=== PATIENT | female | born 1995 | race Caucasian/White ===

== ENCOUNTER 2018-03-25 22:29 | Emergency (ER) | payer MEDICAID ==
[~2018-03-25] VITALS: Ht 160 cm; Wt 82.0 kg
[2018-03-26] MEDS ORDERED: TETANUS, DIPHTHERIA, PERTUSSIS VAC/PF 0.5ML (>7YR OLD) IM ONE (03:00)
[2018-03-26 04:52] VITALS: BP 112/65
== END 2018-03-26 04:55 | disposition home or self-care (01) ==
LOC: ER 22:29
DX: S91.011A Laceration without foreign body, right ankle, initial encounter (principal); W26.0XXA Contact with knife, initial encounter; Y93.89 Activity, other specified; Y92.89 Other specified places as the place of occurrence of the external cause
CPT/HCPCS: 73610; 90471; 90715; 99283; Z7610

== ENCOUNTER 2019-06-01 17:14 | Emergency (ER) | payer MEDICAID ==
[~2019-06-01] VITALS: Ht 160 cm; Wt 91.0 kg
[2019-06-01 18:08] VITALS: BP 104/55
== END 2019-06-01 22:59 | disposition left against medical advice (07) ==
LOC: ER 17:14
DX: N93.9 Abnormal uterine and vaginal bleeding, unspecified (principal); Z53.21 Procedure and treatment not carried out due to patient leaving prior to being seen by health care provider